=== PATIENT | female | born 1955 | race Caucasian/White ===

== ENCOUNTER → 2022-09-23 12:45 | Outpatient (CLI) | payer MEDICARE, OTHER, SELFPAY ==
--- NOTE | 2022-09-23 | DI.US.S_ITS ---
PROCEDURE: US ABDOMEN LIMITED INDICATIONS: RIGHT UPPER QUADRANT PAIN TECHNIQUE: Real-time focused scanning was performed of the abdomen, with image documentation. COMPARISON: None. FINDINGS: The liver demonstrates normal overall size. The liver demonstrates a heterogeneous appearance, with a nonvascular hyperechoic seen within the left lower lobe that measures up to 1.4 cm. No focally suspicious liver lesions are seen. The main portal vein demonstrates normal size and demonstrates normal appearing, hepatopetal flow. There is an apparent 2.2 mm stone within the cystic duct. The gallbladder wall is not thickened, measuring 3 mm or less. No specific pericholecystic fluid is seen. The sonographic Holcomb sign is negative. There is no biliary dilatation, the common bile duct measures 6 mm. No focal pancreatic abnormality is seen. At the superior pole of the right kidney, there is a simple cyst seen that measures up to 4.4 cm. Right kidney pelviectasis is seen. A prominent right proximal ureter is seen, 5.7 mm. IMPRESSION: There is an apparent punctate stone within the cystic duct. No additional ultrasound abnormalities of the gallbladder can be seen. No biliary dilatation. Minimal right kidney pelviectasis. Additional findings: Liver hemangioma 4.5 cm simple right renal cyst Dictated by: Albert Garzon M.D. on 09/23/2022 at 15:06 Approved by: Albert Garzon M.D. on 09/23/2022 at 15:08
== END ==
PROVIDERS: Family Provider Family Medicine; PCP Nurse Practitioner; Referring Provider Nurse Practitioner; Visit Provider Nurse Practitioner
DX: N28.1 Cyst of kidney, acquired (principal); D18.09 Hemangioma of other sites; R10.11 Right upper quadrant pain
CPT/HCPCS: 76705

== ENCOUNTER → 2023-07-16 14:34 | Outpatient (CLI) | payer MEDICARE, OTHER, SELFPAY ==
--- NOTE | 2023-07-16 | DI.RAD.S_ITS ---
PROCEDURE: XR LUMBAR SPINE MIN 4V INDICATIONS: LOW BACK PAIN TECHNIQUE: 5 views of the lumbar spine acquired, including flexion and extension views. COMPARISON: None. FINDINGS: Bones: 5 [id number] vertebrae are present. There is grade 1 anterolisthesis of L5 on S1. No vertebral body compression fractures. No suspicious bony lesions. Multilevel degenerative disc disease, moderate at L4-L5, mild at other levels. Moderate facet arthropathy at L3-L4, L4-L5 and L5-S1. Soft tissues: Overlying bowel gas pattern is normal. No suspicious soft tissue calcifications. Oblique views: No pars defects. IMPRESSION: 1. 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 2. Grade 1 anterolisthesis of L5 on S1. 3. No pars defects. Dictated by: Ramesh Rowland M.D. on 07/16/2023 at 15:53 Approved by: Ramesh Rowland M.D. on 07/16/2023 at 15:55
== END ==
LOC: RAD 14:37
PROVIDERS: Family Provider Family Medicine; PCP Nurse Practitioner; Referring Provider Nurse Practitioner; Visit Provider Nurse Practitioner
DX: M47.816 Spondylosis without myelopathy or radiculopathy, lumbar region (principal); M47.817 Spondylosis without myelopathy or radiculopathy, lumbosacral region; M51.36 Other intervertebral disc degeneration, lumbar region; M43.17 Spondylolisthesis, lumbosacral region; M54.50 Low back pain, unspecified
CPT/HCPCS: 72110